=== PATIENT | male | born 1985 | race Caucasian/White ===

== ENCOUNTER 2018-01-16 05:43 | Emergency (ER) | payer OTHER ==
--- NOTE | 2018-01-16 09:06 | RAD ---
RADIOGRAPH RIGHT HAND 3 VIEWS: Date: 01/16/18 HISTORY: 32-year-old male with traumatic pain in the right hand. FINDINGS: No fracture or dislocation. IMPRESSION: Negative. POS: [facility]
== END 2018-01-16 06:05 | disposition home or self-care (01) ==
LOC: SCSER 05:43
DX: M79.641 Pain in right hand (principal)